=== PATIENT | female | born 1970 | race Caucasian/White ===

== ENCOUNTER → 2021-07-24 | Day surgery (SDC) | payer BC ==
[~2021-07-24] MED LIST: ABILIFY5 MG PO; CALCIUM CITRATE PO; CELEBREX200 MG PO; CELECOXIB200 MG PO; CRESTOR 10 MG T10 MG GT; CYCLOBENZAPRINE5 MG PO; CYMBALTA60 MG PO; DAILY VITE1 EACH PO; ESTROVEN CMPLT M4 MG PO; FENOFIBRATE134 MG PO; IRON PO; LEVAQUIN500 MG PO; LEVOTHYROXINE100 MCG PO; LEXAPRO20 MG PO; MAGNESIUM CITRATE PO; MELATONIN10 M2 PO; NEXIUM40 MG PO; OSTEOBIFLEX PO; ROPINIROLE HCL1 MG PO; TEMAZEPAM15 MG PO; TOPIRAMATE25 MG PO; TRAMADOL-ACETA1 EACH PO; VIT B12 PO; VIT B3 PO; VIT D PO
== END | disposition home or self-care (01) ==
LOC: OR 06:46
DX: Z12.11 Encounter for screening for malignant neoplasm of colon (principal); Z80.0 Family history of malignant neoplasm of digestive organs; E78.5 Hyperlipidemia, unspecified; G47.30 Sleep apnea, unspecified; M79.7 Fibromyalgia; M19.90 Unspecified osteoarthritis, unspecified site; F41.9 Anxiety disorder, unspecified; F32.A Depression, unspecified; E03.9 Hypothyroidism, unspecified; E66.9 Obesity, unspecified; Z68.37 Body mass index [BMI] 37.0-37.9, adult; Z99.89 Dependence on other enabling machines and devices; Z88.6 Allergy status to analgesic agent; Z79.891 Long term (current) use of opiate analgesic; Z79.899 Other long term (current) drug therapy
CPT/HCPCS: J2704; J7030